=== PATIENT | male | born 1930 | race Caucasian/White ===

== ENCOUNTER 2017-09-22 17:33 | Emergency (ER) | payer MEDICARE, OTHER ==
[~2017-09-22] VITALS: Ht 165.1 cm; Wt 70.3 kg
[2017-09-22] MEDS ORDERED: ATOR20TA PO (18:03)
[2017-09-22] MEDS ORDERED: CLOP75TA15 PO (18:03)
[2017-09-22] MEDS ORDERED: ASPI81TA31 PO (18:03)
--- NOTE | 2017-09-22 18:15 | NUR ---
DR LAWRENCE AT THE BEDSIDE FOR EVAL AND EXAM.
[2017-09-22] MEDS ORDERED: TDAP DIPH,PERTUSS,TET VAC/PF 0.5 ML DISP.SYRIN IM ONE ×2 (19:15→19:37)
[2017-09-22] MEDS ORDERED: HYDROCODONE/APAP 5-325MG TABLET PO ONE (20:30)
--- NOTE | 2017-09-22 20:30 | NUR ---
Patient discharged to home in stable conditon. Written and verbal after care instructions given. Patient verbalizes understanding of instructions.
[2017-09-22] MEDS ORDERED: HYDROCODONE/APAP 5-325MG TABLET ONE (20:35)
== END 2017-09-22 20:47 | disposition home or self-care (01) ==
LOC: ER 17:34
DX: S80.212A Abrasion, left knee, initial encounter (principal); M25.511 Pain in right shoulder; I11.0 Hypertensive heart disease with heart failure; I50.9 Heart failure, unspecified; Z95.5 Presence of coronary angioplasty implant and graft; Z79.82 Long term (current) use of aspirin; W18.30XA Fall on same level, unspecified, initial encounter; Y93.89 Activity, other specified; Y92.89 Other specified places as the place of occurrence of the external cause; Y99.8 Other external cause status
CPT/HCPCS: 73030; 73564; 73630; 90471; 90715; 99284; A4663